=== PATIENT | female | born 1980 | race African-American/Black ===

== ENCOUNTER 2023-09-03 21:30 | Emergency (ER) | payer OTHER ==
[~2023-09-03 21:30] MED LIST: Iopamidol-370 76% 500 ML MDV (1 ML CHARGE) ONE
[2023-09-03] MEDS ORDERED: LORazepam 2 MG/ML SYR.(CARPUJECT) ONE (22:08)
[2023-09-03] MEDS ORDERED: Morphine 4 MG/ML VIAL ONE (22:08)
[2023-09-03] MEDS ORDERED: Ondansetron PF 4 MG/2 ML Vial ONE (22:08)
[2023-09-03 22:41] LABS: #Basophils 0.1 thou/uL (0.0-0.2); #Eosinphils 0.6 thou/uL (0.0-0.7); #Monocytes 0.5 thou/uL (0.11-0.59); #Neutrophils 3.8 thou/uL (1.40-6.50); %Basophils 1.3 % (0.0-1.0); %Eosinophils 8.2 % (0.0-10.0); %Lymphocytes 29.2 % (21.0-51.0); %Monocytes 6.9 % (0.0-10.0); %Neutrophils 54.3 % (42.0-75.0); Hematocrit 32.2 % (36.0-47.0); Hemoglobin 9.8 g/dL (12.0-16.0); Mean Corpuscular HGB CONC 30.4 g/dL (32.0-36.0); Mean Corpuscular Hemoglobin 27.1 pg (27.0-31.0); Mean Platelet Volume 9.2 fL (7.4-10.4); Platelet Count 273 10x3/uL (130-400); Red Blood Cell (RBC) Count 3.62 mill/uL (4.20-5.40)
[2023-09-03 23:08] LABS: Troponin I Less than 0.010 ng/mL (< 0.028)
[2023-09-03 23:17] LABS: Anisocytosis SLIGHT = 6-15 cells HPF (0-5); CellaVision Operator ID lab.abc; Hypochromia SLIGHT = 6-15 cells HPF (0-5); Platelet Adequacy Comment Platelets Normal; Polychromasia SLIGHT = 2-3 cells HPF (0-2)
[2023-09-04 00:12] LABS: Alcohol 210.1 mg/dL (Less than 10)
[2023-09-04 00:14] LABS: Magnesium 1.6 mg/dL (1.6-2.6)
[2023-09-04 00:15] LABS: Acetaminophen Less than 10 mcg/mL (10.0-30.0); Lipase 37 U/L (8-78); Salicylate Less than 8.0 mg/dL (15.0-30.0)
[2023-09-04] MEDS ORDERED: chlordiazePOXIDE HCl 25 MG CAP ONE (00:34)
[2023-09-04] MEDS ORDERED: Morphine 4 MG/ML VIAL ONE (00:35)
[2023-09-04 00:40] LABS: ALT (SGPT) Less than 7 U/L (8-55); AST (SGOT) 80 U/L (5-34); Albumin 2.6 g/dL (3.5-5.0); Alkaline Phosphatase 127 U/L (40-110); Anion Gap 14 mmol/L (10-20); BUN (Urea Nitrogen) Less than 4 mg/dL (7.0-18.7); Bilirubin, Total 0.9 mg/dL (0.2-1.2); Calc. Creatinine Clearance 0 mL/min (70-130); Calcium 8.1 mg/dL (7.8-10.44); Carbon Dioxide 23 mmol/L (22-29); Chloride 108 mmol/L (98-107); Estimated GFR 110; Globulin 4.4 g/dL (2.4-3.5); Glucose 82 mg/dL (70-105); Potassium 4.3 mmol/L (3.5-5.1); Sodium 141 mmol/L (136-145)
== END 2023-09-04 01:30 | disposition home or self-care (01) ==
LOC: ERS 21:30
DX: D64.9 Anemia, unspecified (principal); F14.10 Cocaine abuse, uncomplicated; F10.129 Alcohol abuse with intoxication, unspecified; F17.210 Nicotine dependence, cigarettes, uncomplicated; Y90.7 Blood alcohol level of 200-239 mg/100 ml
CPT/HCPCS: 36415; 71045; 71275; 80053; 80307; 83690; 83735; 83880; 84443; 84484; 85025; 85379; 96374; 96375; 96376; J2060; J2270; J2405; Q9967

== ENCOUNTER 2023-09-07 18:40 | Emergency (ER) | payer OTHER ==
[2023-09-07 19:16] LABS: #Basophils 0.1 thou/uL (0.0-0.2); #Eosinphils 0.5 thou/uL (0.0-0.7); #Monocytes 0.7 thou/uL (0.11-0.59); #Neutrophils 2.7 thou/uL (1.40-6.50); %Basophils 1.3 % (0.0-1.0); %Eosinophils 8.5 % (0.0-10.0); %Lymphocytes 26.5 % (21.0-51.0); %Monocytes 12.3 % (0.0-10.0); %Neutrophils 51.2 % (42.0-75.0); Hematocrit 31.6 % (36.0-47.0); Hemoglobin 9.5 g/dL (12.0-16.0); Mean Corpuscular HGB CONC 30.1 g/dL (32.0-36.0); Mean Corpuscular Hemoglobin 26.5 pg (27.0-31.0); Mean Corpuscular Volume 88.3 fl (78.0-98.0); Platelet Count 241 10x3/uL (130-400); RBC Distribution Width 23.8 % (11.5-14.5); Red Blood Cell (RBC) Count 3.58 mill/uL (4.20-5.40); White Blood Cell (WBC) Count 5.3 10x3/uL (4.8-10.8)
[2023-09-07 19:27] LABS: BHCG - Serum Negative (NEGATIVE); Pregs Control Background? CLEAR/WHITE (CLR/WHITE); Pregs Control Bar Appear? YES (CONTROL BAR)
[2023-09-07 19:41] LABS: ALT (SGPT) 11 U/L (8-55); AST (SGOT) 154 U/L (5-34); Albumin 3.1 g/dL (3.5-5.0); Alkaline Phosphatase 174 U/L (40-110); Anion Gap 13 mmol/L (10-20); BUN (Urea Nitrogen) 4 mg/dL (7.0-18.7); Calc. Creatinine Clearance 0 mL/min (70-130); Calcium 8.6 mg/dL (7.8-10.44); Carbon Dioxide 27 mmol/L (22-29); Chloride 106 mmol/L (98-107); Estimated GFR 96; Globulin 5.5 g/dL (2.4-3.5); Glucose 94 mg/dL (70-105); Potassium 3.6 mmol/L (3.5-5.1); Protein, Total 8.6 g/dL (6.0-8.3); Sodium 142 mmol/L (136-145)
[2023-09-07 19:45] LABS: Troponin I Less than 0.010 ng/mL (< 0.028)
[2023-09-07] MEDS ORDERED: Ondansetron PF 4 MG/2 ML Vial ONE (20:03)
[2023-09-07 20:40] LABS: Bacteria/HPF None Seen HPF (None Seen); Bilirubin Negative (Negative); Blood, Urine Negative (Negative); CAUTI Indications for Culture Dysuria,urgency,freq; Clarity Clear (Clear); Glucose, Urine (Dipstick) Normal (Negative); Ketone, Urine Negative (Negative); Leukocyte Negative Leu/uL (Negative); Nitrite Negative (Negative); Protein, Urine (Dipstick) 10 mg/dL (Neg-Trace); RBC/HPF 0-3 HPF (0-3); Specific Gravity, Urine 1.017 (1.002-1.036); Squamous Epithelial 0-3 HPF (0-3); Urobilinogen 3 mg/dL (Less than 2); WBC/HPF 0-3 HPF (0-3); pH, Urine 7.5 (5.0-9.0)
[2023-09-07 20:46] LABS: Urine Culture Reflex No No
== END 2023-09-07 21:13 | disposition home or self-care (01) ==
LOC: ERS 18:40
DX: R07.9 Chest pain, unspecified (principal); K21.9 Gastro-esophageal reflux disease without esophagitis; F17.290 Nicotine dependence, other tobacco product, uncomplicated; Z79.899 Other long term (current) drug therapy
CPT/HCPCS: 71045; 80053; 81001; 84484; 84703; 85025; 93005; 96361; 96374; J2405

== ENCOUNTER 2023-09-25 10:29 | Emergency (ER) | payer OTHER ==
[2023-09-25] MEDS ORDERED: Aspirin Chewable 81 MG TAB ONE (11:45)
[2023-09-25 12:09] LABS: #Basophils 0.1 thou/uL (0.0-0.2); #Eosinphils 0.2 thou/uL (0.0-0.7); #Monocytes 0.9 thou/uL (0.11-0.59); #Neutrophils 5.8 thou/uL (1.40-6.50); %Basophils 0.7 % (0.0-1.0); %Eosinophils 2.8 % (0.0-10.0); %Lymphocytes 15.6 % (21.0-51.0); %Monocytes 10.2 % (0.0-10.0); %Neutrophils 70.2 % (42.0-75.0); Hematocrit 31.4 % (36.0-47.0); Hemoglobin 9.5 g/dL (12.0-16.0); Mean Corpuscular HGB CONC 30.3 g/dL (32.0-36.0); Mean Corpuscular Hemoglobin 26.9 pg (27.0-31.0); Mean Platelet Volume 9.5 fL (7.4-10.4); Platelet Count 202 10x3/uL (130-400); RBC Distribution Width 23.7 % (11.5-14.5); Red Blood Cell (RBC) Count 3.53 mill/uL (4.20-5.40); White Blood Cell (WBC) Count 8.3 10x3/uL (4.8-10.8)
[2023-09-25 12:22] LABS: ALT (SGPT) 7 U/L (8-55); AST (SGOT) 51 U/L (5-34); Albumin 3.3 g/dL (3.5-5.0); Alkaline Phosphatase 164 U/L (40-110); Anion Gap 22 mmol/L (10-20); BUN (Urea Nitrogen) 4 mg/dL (7.0-18.7); Bilirubin, Total 2.9 mg/dL (0.2-1.2); Calc. Creatinine Clearance 0 mL/min (70-130); Calcium 8.3 mg/dL (7.8-10.44); Carbon Dioxide 22 mmol/L (22-29); Chloride 93 mmol/L (98-107); Estimated GFR 109; Glucose 71 mg/dL (70-105); Lipase 9 U/L (8-78); Protein, Total 8.3 g/dL (6.0-8.3); Sodium 134 mmol/L (136-145)
[2023-09-25 12:23] LABS: Acetaminophen Less than 10 mcg/mL (10.0-30.0); Alcohol 16.5 mg/dL (Less than 10); Salicylate Less than 8.0 mg/dL (15.0-30.0)
[2023-09-25 12:27] LABS: Troponin I Less than 0.010 ng/mL (< 0.028)
[2023-09-25 12:37] LABS: BHCG - Serum Negative (NEGATIVE); Pregs Control Background? CLEAR/WHITE (CLR/WHITE); Pregs Control Bar Appear? YES (CONTROL BAR)
[2023-09-25] MEDS ORDERED: Pantoprazole 40 MG VIAL ONE (13:18)
[2023-09-25] MEDS ORDERED: Thiamine HCl 200 MG/2 ML VIAL ONE (13:18)
== END 2023-09-25 13:58 | disposition home or self-care (01) ==
LOC: ERS 10:29
DX: K29.00 Acute gastritis without bleeding (principal); E03.9 Hypothyroidism, unspecified; F17.290 Nicotine dependence, other tobacco product, uncomplicated
CPT/HCPCS: 71045; 80053; 80307; 83690; 84484; 84703; 85025; 93005; 94760; 96374; 96375; C9113; J3411

== ENCOUNTER 2023-10-23 11:37 | Emergency (ER) | payer OTHER ==
[2023-10-23 12:47] LABS: #Basophils 0.1 thou/uL (0.0-0.2); #Eosinphils 0.2 thou/uL (0.0-0.7); #Monocytes 0.8 thou/uL (0.11-0.59); #Neutrophils 6.2 thou/uL (1.40-6.50); %Basophils 0.7 % (0.0-1.0); %Eosinophils 2.2 % (0.0-10.0); %Lymphocytes 13.7 % (21.0-51.0); %Monocytes 9.7 % (0.0-10.0); %Neutrophils 73.2 % (42.0-75.0); Hematocrit 28.8 % (36.0-47.0); Mean Corpuscular HGB CONC 31.3 g/dL (32.0-36.0); Mean Corpuscular Hemoglobin 27.3 pg (27.0-31.0); Mean Corpuscular Volume 87.3 fl (78.0-98.0); Platelet Count 227 10x3/uL (130-400); RBC Distribution Width 23.4 % (11.5-14.5); White Blood Cell (WBC) Count 8.5 10x3/uL (4.8-10.8)
[2023-10-23] MEDS ORDERED: Famotidine/PF 20 mg/2ml Vial ONE (12:56)
[2023-10-23 13:06] LABS: BHCG - Serum Negative (NEGATIVE); Pregs Control Bar Appear? YES (CONTROL BAR)
[2023-10-23 13:07] LABS: ALT (SGPT) Less than 7 U/L (8-55); AST (SGOT) 42 U/L (5-34); Albumin 2.9 g/dL (3.5-5.0); Alkaline Phosphatase 204 U/L (40-110); Anion Gap 17 mmol/L (10-20); BUN (Urea Nitrogen) Less than 4 mg/dL (7.0-18.7); Bilirubin, Total 3.2 mg/dL (0.2-1.2); Calc. Creatinine Clearance 0 mL/min (70-130); Calcium 8.3 mg/dL (7.8-10.44); Carbon Dioxide 33 mmol/L (22-29); Chloride 88 mmol/L (98-107); Estimated GFR 110; Glucose 94 mg/dL (70-105); Lipase 12 U/L (8-78); Pregs Control Background? CLEAR/WHITE (CLR/WHITE); Protein, Total 7.9 g/dL (6.0-8.3); Sodium 136 mmol/L (136-145)
[2023-10-23 13:08] LABS: Troponin I Less than 0.010 ng/mL (< 0.028)
[2023-10-23 13:14] LABS: Critical Call Chemistry NUR.KR7@1313; Potassium 2.2 mmol/L (3.5-5.1)
[2023-10-23] MEDS ORDERED: Potassium Chloride 20 MEQ TAB ONE ×2 (13:28→19:29)
[2023-10-23] MEDS ORDERED: Ondansetron PF 4 MG/2 ML Vial ONE (13:43)
[2023-10-23] MEDS ORDERED: Potassium Chloride 20 MEQ (100 mL) BAG ONE (13:44)
[2023-10-23 13:49] LABS: Magnesium 1.7 mg/dL (1.6-2.6)
[2023-10-23 14:16] LABS: Bacteria/HPF None Seen HPF (None Seen); Bilirubin 1+ (Negative); Blood, Urine Negative (Negative); CAUTI Indications for Culture Pelvic or flank pain; Clarity Clear (Clear); Glucose, Urine (Dipstick) Normal (Negative); Ketone, Urine 20 mg/dL (Negative); Leukocyte 25 Leu/uL (Negative); Nitrite Negative (Negative); Protein, Urine (Dipstick) 20 mg/dL (Neg-Trace); RBC/HPF 0-3 HPF (0-3); Urobilinogen Greater than 12 mg/dL (Less than 2)
[2023-10-23 14:18] LABS: Urine Culture Reflex No No
[2023-10-23 15:18] LABS: SARS-CoV-2 NAA Rapid Test Not Detected (NotDetected)
== END 2023-10-23 19:55 | disposition home or self-care (01) ==
LOC: ERS 11:37
DX: E87.6 Hypokalemia (principal); R11.2 Nausea with vomiting, unspecified; F17.290 Nicotine dependence, other tobacco product, uncomplicated
CPT/HCPCS: 36415; 70450; 71045; 74177; 80053; 81001; 83690; 83735; 84484; 84703; 85025; 87077; 87086; 87186; 93005; 96361; 96374; 96375; J2405; J3480; Q9967; S0028

== ENCOUNTER 2023-10-28 09:49 | Outpatient (CLI) | payer OTHER | END 2023-10-28 09:50 | disposition home or self-care (01) | LOC: BICULT 09:49 | PROVIDERS: ATTEND Internal Medicine | DX: K82.4 Cholesterolosis of gallbladder (principal); R11.2 Nausea with vomiting, unspecified; R10.11 Right upper quadrant pain; B96.81 Helicobacter pylori [H. pylori] as the cause of diseases classified elsewhere; K70.10 Alcoholic hepatitis without ascites; K76.0 Fatty (change of) liver, not elsewhere classified; R16.1 Splenomegaly, not elsewhere classified | CPT/HCPCS: 76700 ==